=== PATIENT | female | born 1955 | race Caucasian/White ===

== ENCOUNTER 2021-05-01 13:55 | Emergency (ER) | payer BC ==
[~2021-05-01] VITALS: Ht 167 cm; Wt 65.7 kg
--- OUTSIDE RECORDS SUMMARY | 2021-05-01 14:02 | XMS REPORT | Clinical Summary ---
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 Phone PCP Unavailable Allergies No known active allergies Medications End Date Status Medication Sig Dispensed Refills Start Date Active simvastatin (ZOCOR) 20 MG take 1 tablet 0 12/01 tablet (20MG) by 3 oral route every day in the evening Active niacin 500 MG tablet take 1 tablet 0 (500MG) by 3 ORAL route 2 times every day Active calcium carbonate (OYSTER One orally 0 0 CALCIUM) 500 MG TABS daily 3 tablet Active .reconcile (MEDICATION No Sig 1 0 LIST IMPORTED) 3 Active Problems Not on file Social History Date Tobacco Use Types Packs/Day Years Used Never Smoker Sex Assigned at Date Recorded Not on file Last Filed Vital Signs Reading Time Taken Comments Vital Sign 110/78 08/28/2011 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 Blood Pressure - - Pulse - - Temperature - - Respiratory Rate - - Oxygen Saturation - - Inhaled Oxygen Concentration 80.3 kg (177 lb) 08/28/2011 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 Weight 167.6 cm (5' 6") 08/28/2011 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 Height 28.57 08/28/2011 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 Body Mass Index Plan of Treatment Health Maintenance Due Date Last Done Comments COVID-19 Vaccine (1) 1969 Hepatitis C Screening 10/07/1975 DTaP,Tdap,and Td Vaccines 1976 (1 - Tdap) MMR Vaccines-Adult 1976 Cervical Cancer Screening 1978 Breast Cancer 10/07/2007 Screening-Mammogram Zoster Vaccine (1 of 2) 10/07/2007 Colon Cancer Screening 07/27/2018 07/27/2008 Influenza Vaccine (#1) 2021 Pneumo-Vaccine: 65+Yrs (1 2022 of 1 - PPSV23) HIB Vaccines Aged Out No longer eligible based on patient's age to complete this topic IPV Vaccines Aged Out No longer eligible based on patient's age to complete this topic Meningococcal Vaccine Aged Out No longer eligib le based on patient's age to complete this topic Pneumo-Vaccine: Peds (0-5 Aged Out No longer el igible based on patient's age to Yrs) & At-Risk Patients complete this topic (6-64 Yrs) Rotavirus Vaccines Aged Out No longer eligible based on patient's age to complete this topic Results Not on filefrom Last 3 Months
--- OUTSIDE RECORDS SUMMARY | 2021-05-01 14:02 | XMS REPORT | Clinical Summary ---
Author Author [facility] Organization [facility] Address Unknown Phone Unavailable Care Team Providers Care Public Administration Professor Name Role Phone Renata Traylor DO PCP Juventino Riley MD Unavailable Source Comments Some departments are not documenting in the electronic medical record. If you d o not see the information that you expected, contact Release of Information in [facility] [employer] Information Management department at [phone] for further assistan ce in locating additional records.[facility] Allergies No Known Active Allergies Medications End Date Status Medication Sig Dispensed Refills Start Date Active medical supply, Use as 0 miscellaneous directed. (COMPRESSION STOCKINGS 20-30 mm hg MISC) pressure Active Problems Problem Noted Date Postoperative visit 10/02/2018 Varicose veins of right lower extremity with pain Varicose veins of left lower extremity with pain 06/2019 Spider veins 07/13/2018 Surgical History Surgery Date Site/Laterality Comments SECTION 01/18/1985 SECTION 07/15/1987 VARICOSE VEIN SURGERY 07/02/1977 - Right 07/01/1978 HX ENDOVENOUS ABLATION OF 08/15/2018 Right righ t small saphenous endovenous ablation-Dr. MILIAN SMALL SAPHENOUS VEIN Osvaldo HX ENDOVENOUS ABLATION OF 08/16/2018 Left left small saphenous endovenous ablation-Dr. MILIAN SMALL SAPHENOUS VEIN Osvaldo HX MICROPHLEBECTOMY 05/15/2019 Right right leg microphlebectomy Medical History Medical History Date Comments Hyperlipidemia Varicose veins of both lower extremities Cancer (HCC) Family History Medical History Relation Name Comments Circulatory problem Father Varicose Veins Hypertension Father Heart Disease Maternal Grandfather Stroke Maternal Grandmother Cancer Mother None Reported Paternal Grandfather Circulatory problem Paternal Varicose Veins Grandmother Hypertension Paternal Grandmother Relation Name Status Comments Father Maternal Grandfather Maternal Grandmother Mother Alive Paternal Grandfather Paternal Grandmother Social History Date Tobacco Use Types Packs/Day Years Used Quit: 07/09/1988 Former Smoker Smokeless Tobacco: Never Used Comments Alcohol Use Standard Drinks/Week monthly or less Yes 0 (1 standard drink = 0.6 o z pure alcohol) Alcohol Habits Answer Date Recorded How often do you have a drink containing alcohol? No t asked How many drinks containing alcohol do you have on No t asked a typical day when you are drinking? How often do you have six or more drinks on one Not asked occasion? 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 Blood Pressure 71 07/22/2019 2:13 PM SHEET COMBINING OPERATOR Pulse 36.6 C (97.8 F) 07/22/2019 2:07 PM SHEET COMBINING OPERATOR Temperature - - Respiratory Rate - - Oxygen Saturation - - Inhaled Oxygen Concentration 62.1 kg (137 lb) 07/22/2019 2:07 PM SHEET COMBINING OPERATOR Weight 167.6 cm (5' 6") 07/22/2019 2:07 PM SHEET COMBINING OPERATOR Height 22.11 07/22/2019 2:07 PM SHEET COMBINING OPERATOR Body Mass Index Plan of Treatment Health Maintenance Due Date Last Done Comments HIV SCREENING 1972 DTAP/TDAP VACCINES (1 - 10/07/1975 Tdap) HEPATITIS C SCREENING 10/07/1975 PHYSICAL (COMPREHENSIVE) 10/07/1975 EXAM CERVICAL CANCER SCREENING 1978 BREAST CANCER SCREENING 1997 COLORECTAL CANCER 10/07/2007 SCREENING SHINGLES RECOMBINANT 10/07/2007 VACCINE (1 of 2) INFLUENZA VACCINE 01/30/2021 Results Not on filefrom Last 3 Months Insurance Type Payer Benefit Subscriber ID Effective Phone Address Plan / Dates Group PPO BCBS G[employer] BCBS [employer] [id number] 2013- FED EMP Present PROGRAM Advance Directives Patient Complex Manager Explanation Type Date Recorded Advance Directive/DPOA
[2021-05-01] MEDS ORDERED: fentaNYL INJ 100 MCG/2 ML AMP IVP STA (14:32)
[2021-05-01] MEDS ORDERED: NS IV 1000 ML 1,000 ML IV STA (14:32)
[2021-05-01] MEDS ORDERED: KETOROLAC 30 MG/ML VIAL IVP STA (14:32)
[2021-05-01 14:43] LABS: ALBUMIN 4.4 GM/DL (3.2-4.5)
--- NOTE | 2021-05-01 14:43 | ED Abdominal Pain ---
General Chief Complaint: Chest Pain Stated Complaint: CHEST AND BACK PAIN/VOMITING Nursing Triage Note: PT ARRIVES TO ER FROM [facility] WITH C/O LOWER STERNAL PAIN/ CHEST PAIN AND VOMITTING LAST NIGHT. PT HAS NOT BEEN AROUND ANYONE SICK THAT SHE IS AWARE OF BUT DID JUST MOVE TO [place] FROM [place] THIS WEEK Source of Information: Patient Exam Limitations: No Limitations History of Present Illness Date Seen by Provider: May 01, 2021 Time Seen by Provider: 14:23 Initial Comments Here with complaint of epigastric abdominal pain that radiates to her back. Onset yesterday after eating ribs and onion rings. She had multiple episodes of vomiting which did help. She is feeling still a little sick today with mild pain. She has been able to drink water but has not tried to eat anything. Denies fever chills. She is passing a lot of gas and burping. Does feel rumbling in her stomach. She has had 1 previous incident of this but it went away. Her sister recently had her gallbladder out and patient was a little bit worried about that. Denies active chest pain, breathing problems, fever, chills, upper respiratory infections, blood in her urine or stool or other concerns. Timing/Duration: 12 Hours Severity/Quality: Moderate Location: Epigastric Radiation: Back Activities at Onset: Other (Eating) Modifying Factors: Worsens With Eating; Improves With Vomiting Associated Symptoms: Back Pain, Chest Pain (Burning aching pain that starts epigastric and moves up to the chest a little bit but mostly to the back); No Fever/Chills; Heartburn, Nausea/Vomiting; No Shortness of Air, No Weakness Allergies and Home Medications Allergies Coded Allergies: No Known Drug Allergies (Unverified , 05/01/21) Patient Home Medication List Home Medication List Reviewed: Yes Review of Systems Review of Systems Constitutional: see HPI; No fever, No weakness EENTM: See HPI Respiratory: See HPI Cardiovascular: See HPI Gastrointestinal: Abdominal Pain, Nausea, Vomiting Genitourinary: Denies Hematuria, Denies Pain Musculoskeletal: see HPI Skin: no symptoms reported Psychiatric/Neurological: No Symptoms Reported All Other Systems Reviewed Negative Unless Noted: Yes Past Nhsnxee-Chqkex-Emovnv Hx Patient Social History Tobacco Use?: No Use of E-Cig and/or Vaping dev: No Substance use?: No Alcohol Use?: No Pt feels they are or have been: No Immunizations Up To Date Influenza Vaccine Up-to-Date: No; Not Current First/Initial COVID19 Vaccinat: OCTOBER 2020 Second COVID19 Vaccination Sarmad: NOVEMBER 2020 COVID19 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 Past Medical History Surgeries: Yes Breast, Section Respiratory: No Cardiac: No Neurological: No : No Genitourinary: No Gastrointestinal: No Musculoskeletal: No Endocrine: No HEENT: No Cancer: Yes Breast What Type of Treatment Did You: Surgical Intervention Family Medical History Reviewed and Corrections made No Pertinent Family Hx Physical Exam Vital Signs Vital Signs - First Documented 05/01/21 14:00 Temp 37.3 Pulse 90 Resp 18 B/P (MAP) 134/96 (109) Pulse Ox 98 O2 Delivery Room Air Capillary Refill : Less Than 3 Seconds Height/Weight/BMI Height: '" Weight: lbs. oz. kg; 23.00 BMI Method: General Appearance: WD/WN, no apparent distress HEENT: PERRL/EOMI Neck: full range of motion, supple Respiratory: lungs clear, normal breath sounds Cardiovascular: regular rate, rhythm, no murmur Gastrointestinal: soft; No distended, No guarding; tenderness (Mild in the epigastric/right upper quadrant) Extremities: non-tender, normal inspection, no pedal edema Back: normal inspection, no CVA tenderness, no vertebral tenderness Neurologic/Psychiatric: alert, normal mood/affect, oriented x 3 Skin: normal color, warm/dry Progress/Results/Core Measures Results/Orders Lab Results Laboratory Tests Test 05/01/21 14:08 Range/Units White Blood Count 9.4 4.3-11.0 10^3/uL Red Blood Count 4.36 3.80-5.11 10^6/uL Hemoglobin 13.3 11.5-16.0 g/dL Hematocrit 40 35-52 % Mean Corpuscular Volume 93 80-99 fL Mean Corpuscular Hemoglobin 31 25-34 pg Mean Corpuscular Hemoglobin Concent 33 32-36 g/dL Red Cell Distribution Width 12.7 10.0-14.5 % Platelet Count 320 130-400 10^3/uL Mean Platelet Volume 9.6 9.0-12.2 fL Immature Granulocyte % (Auto) 0 % Neutrophils (%) (Auto) 77 H 42-75 % Lymphocytes (%) (Auto) 12 12-44 % Monocytes (%) (Auto) 10 0-12 % Eosinophils (%) (Auto) 0 0-10 % Basophils (%) (Auto) 0 0-10 % Neutrophils # (Auto) 7.2 1.8-7.8 X 10^3 Lymphocytes # (Auto) 1.2 1.0-4.0 X 10^3 Monocytes # (Auto) 1.0 0.0-1.0 X 10^3 Eosinophils # (Auto) 0.0 0.0-0.3 10^3/uL Basophils # (Auto) 0.0 0.0-0.1 10^3/uL Immature Granulocyte # (Auto) 0.0 0.0-0.1 10^3/uL Sodium Level 137 135-145 MMOL/L Potassium Level 3.7 3.6-5.0 MMOL/L Chloride Level 102 98-107 MMOL/L Carbon Dioxide Level 22 21-32 MMOL/L Anion Gap 13 5-14 MMOL/L Blood Urea Nitrogen 12 7-18 MG/DL Creatinine 0.79 0.60-1.30 MG/DL Estimat Glomerular Filtration Rate 74 BUN/Creatinine Ratio 15 Glucose Level 101 70-105 MG/DL Calcium Level 9.5 8.5-10.1 MG/DL Corrected Calcium 9.2 8.5-10.1 MG/DL Magnesium Level 1.9 1.6-2.4 MG/DL Total Bilirubin 1.1 H 0.1-1.0 MG/DL Aspartate Amino Transf (AST/SGOT) 18 5-34 U/L Alanine Aminotransferase (ALT/SGPT) 14 0-55 U/L Alkaline Phosphatase 79 40-136 U/L Troponin I < 0.028 <0.028 NG/ML C-Reactive Protein High Sensitivity 1.26 H 0.00-0.50 MG/DL Total Protein 7.4 6.4-8.2 GM/DL Albumin 4.4 3.2-4.5 GM/DL Lipase 7 L 8-78 U/L My Orders Orders - JEFF HOUSE MD Cbc With Automated Diff (05/01/21 14:32) Comprehensive Metabolic Panel (05/01/21 14:32) Hs C Reactive Protein (05/01/21 14:32) Lipase (05/01/21 14:32) Magnesium (05/01/21 14:32) Troponin I (05/01/21 14:32) Ondansetron Injection (Zofran Injectio (05/01/21 14:45) Ns Iv 1000 Ml (Sodium Chloride 0.9%) (05/01/21 14:32) Ed Iv/Invasive Line Start (05/01/21 14:32) Fentanyl Inj (Sublimaze Injection) (05/01/21 14:32) Ketorolac Injection (Toradol Injection) (05/01/21 14:32) Ekg Tracing (05/01/21 14:32) Chest 1 View, Ap/Pa Only (05/01/21 14:32) Medications Given in ED Current Medications Medications Dose Ordered Sig/Waqar Route Start Time Stop Time Status Last Admin Dose Admin Ondansetron HCl 4 mg ONCE ONCE IVP 05/01/21 14:45 05/01/21 14:46 DC 05/01/21 14:44 4 MG Vital Signs/I&O 05/01/21 14:00 Temp 37.3 Pulse 90 Resp 18 B/P (MAP) 134/96 (109) Pulse Ox 98 O2 Delivery Room Air Blood Pressure Mean: 109 Progress Progress Note : Progress Note Seen and evaluated. IV, labs, EKG and chest x-ray ordered. Normal saline 1 L bolus, Toradol 30 mg IV, fentanyl 25 mcg IV ordered. Seems to be more abdominal pain related room I do have concerns about gallbladder. We will reevaluate after medications and labs. Ultrasound not available today. If imaging is needed, we will need to do CT scan but will see what the labs show. Monitor patient. 1531: Overall doing much better and pain-free currently. Labs reviewed. No indication for CT scan currently. Patient would benefit from ultrasound. I did discuss the case with Dr. Rice and he will see her tomorrow around 2:00. Patient is to call the office in the morning for appointment. Patient was very appreciative of that and will call the office in the morning. I will send a copy of the chart to Dr. Rice. Discharged home with return precautions. Patient verbalized understanding of instructions and agreement with plan. Initial ECG Impression Date: May 01, 2021 Initial ECG Impression Time: 14:03 Initial ECG Rate: 83 Initial ECG Rhythm: Normal Sinus Initial ECG Comparisson: No Previous ECG Available Comment Sinus rhythm with normal axis. No evidence of ST elevation [place]. Consideration for left atrial abnormality. No previous available for comparison. Interpreted by me. Departure Impression Primary Impression: Epigastric abdominal pain Disposition: 01 HOME, SELF-CARE Condition: Improved Departure-Patient Inst. Decision time for Depature: 15:32 Referrals: KRISTYN RICE,LOCAL PHYSICIAN (PCP) Primary Care Physician Patient Instructions: Abdominal Pain, Adult ED, Gallstones (DC), POSS GALLSTONE-W/BILIARY COLIC Add. Discharge Instructions: All discharge instructions reviewed with patient and/or family. Voiced understanding. Stick to clear or light diet for the next 24 to 48 hours and then in advance as per instructions with Dr. Rcie. Avoid fatty or spicy foods completely right now. You may take Tylenol/acetaminophen 1000 mg every 6-8 hours as needed for pain. If that is not working then you may take ibuprofen 400 mg every 8 hours as needed for pain. If you are having pain after Tylenol and ibuprofen, return to the emergency department for further evaluation. Return for chest pain, breathing problems, weakness, fever, vomiting or other concerns as needed. Call Dr. Rice's office in the morning for appointment at around 2:00 pm when he will be in office seeing another patient. Let them know the case was discussed with him and he would like to see you. Copy Copies To 1: KRISTYN RICE TIMOTHY D MD May 01, 2021 14:43
[2021-05-01 14:44] LABS: CHLORIDE 102 MMOL/L (98-107); POTASSIUM 3.7 MMOL/L (3.6-5.0); SODIUM 137 MMOL/L (135-145)
[2021-05-01 14:45] LABS: CALCIUM 9.5 MG/DL (8.5-10.1)
[2021-05-01] MEDS ORDERED: ONDANSETRON 4 MG/2 ML (SDV) Z0FRAN IVP ONE (14:45)
[2021-05-01 14:46] LABS: GLUCOSE 101 MG/DL (70-105); TOTAL PROTEIN 7.4 GM/DL (6.4-8.2)
[2021-05-01 14:47] LABS: BASOPHILS % (AUTO) 0 % (0-10); CARBON DIOXIDE 22 MMOL/L (21-32); EOSINOPHILS % (AUTO) 0 % (0-10); HEMATOCRIT 40 % (35-52); HEMOGLOBIN 13.3 g/dL (11.5-16.0); LYMPHOCYTES # (AUTO) 1.2 X 10^3 (1.0-4.0); LYMPHOCYTES % (AUTO) 12 % (12-44); MEAN CORPUSCULAR HEMOGLOBIN 31 pg (25-34); MEAN CORPUSCULAR HGB CONC 33 g/dL (32-36); MEAN CORPUSCULAR VOLUME 93 fL (80-99); MEAN PLATELET VOLUME 9.6 fL (9.0-12.2); MONOCYTES % (AUTO) 10 % (0-12); NEUTROPHILS # (AUTO) 7.2 X 10^3 (1.8-7.8); NEUTROPHILS % (AUTO) 77 % (42-75); PLATELET COUNT 320 10^3/uL (130-400); WHITE BLOOD COUNT 9.4 10^3/uL (4.3-11.0)
[2021-05-01 14:48] LABS: BILIRUBIN,TOTAL 1.1 MG/DL (0.1-1.0)
[2021-05-01 14:49] LABS: ALKALINE PHOSPHATASE 79 U/L (40-136)
[2021-05-01 14:50] LABS: CREATININE SERUM 0.79 MG/DL (0.60-1.30); GFR ESTIMATED 74
[2021-05-01 14:51] LABS: BUN/CREATININE RATIO 15
[2021-05-01 14:53] LABS: ALANINE AMINOTRANSFERASE 14 U/L (0-55); MAGNESIUM 1.9 MG/DL (1.6-2.4)
[2021-05-01 14:54] LABS: LIPASE 7 U/L (8-78)
--- NOTE | 2021-05-01 15:12 | Diagnostic Imaging Report ---
Clinical indications: Patient with lower sternal pain/chest pain. Patient was vomiting last night. Patient has history of breast cancer surgery in the right breast. Exam: Portable chest x-ray upright view. Comparisons: None. Findings: Lungs/pleura: Lungs are clear. There is no pneumothorax. There is no pleural effusion. Mediastinum: Unremarkable. Pulmonary vasculature: Unremarkable. Heart: Unremarkable. Bones/extrathoracic soft tissue: There are degenerative spurs involving the thoracic spine. There are surgical clips overlying the right lower chest region. Impression: There is no radiographic evidence of acute cardiopulmonary process. Dictated by: Dictated on workstation # [id number]
[2021-05-01 15:43] VITALS: BP 121/90
== END 2021-05-01 15:45 | disposition home or self-care (01) ==
LOC: ER 13:59
DX: R10.13 Epigastric pain (principal)
CPT/HCPCS: 36415; 71045; 80053; 83690; 83735; 84484; 85025; 86141; 93005

== ENCOUNTER → 2021-05-06 | Outpatient (CLI) | payer BC ==
--- NOTE | 2021-05-06 10:44 | Diagnostic Imaging Report ---
PROCEDURE: US Gallbladder. TECHNIQUE: Multiple real-time grayscale images were obtained over the right upper quadrant in various projections. INDICATION: Abdominal pain and vomiting episodes. EXAMINATION: Ultrasound gallbladder from 05/06/2021 FINDINGS: The liver is unremarkable with no focal lesions or intrahepatic biliary dilatation. The common duct is normal in size measuring 0.5 cm. Gallbladder wall is at the upper limits of normal measuring 3 mm. Sludge is seen within the gallbladder. There is no pericholecystic fluid. Visualized aspects of the pancreas unremarkable, however, much of the pancreas is not seen due to overlying bowel gas. Visualized aorta and IVC unremarkable. Right kidney 10.2 cm in length and unremarkable in appearance. There is no hydronephrosis. There is no ascites. IMPRESSION: 1. Sludge within the gallbladder with the gallbladder wall at the upper limits of normal in thickness. No other evidence for acute cholecystitis. Dictated by: Dictated on workstation # [id number]
== END ==
LOC: RAD 08:30
PROVIDERS: ATTEND Surgery
DX: R10.13 Epigastric pain (principal); R11.10 Vomiting, unspecified
CPT/HCPCS: 76705

== ENCOUNTER 2021-05-16 05:34 | Outpatient (CLI) | payer BC ==
[~2021-05-16] VITALS: Ht 167 cm; Wt 65.9 kg
[2021-05-18] MEDS ORDERED: ACHD5005 PO (09:53)
== END 2021-05-16 09:59 | disposition home or self-care (01) ==
LOC: PREOP 05:34
PROVIDERS: ATTEND Surgery
DX: Z01.818 Encounter for other preprocedural examination (principal)

== ENCOUNTER 2021-05-18 06:46 | Day surgery (SDC) | payer BC ==
[2021-05-18] VITALS (12 sets, daily range): BP systolic 121–157; BP diastolic 67–90
[~2021-05-18] VITALS: Ht 167 cm; Wt 65.9 kg
[2021-05-18] MEDS ORDERED: LIDOCAINE/EPI 1%-1:100,000 (XYLOCAINE) 20ML ONE (06:56)
[2021-05-18] MEDS ORDERED: LIDOCAINE PF 2% 5 ML (XYLOCAINE) VIAL ONE (07:22)
[2021-05-18] MEDS ORDERED: ROCURONIUM 10 MG/ML 5 ML SYRINGE IV ONE (07:22)
[2021-05-18] MEDS ORDERED: fentaNYL INJ 100 MCG/2 ML AMP ONE (07:22)
[2021-05-18] MEDS ORDERED: MIDAZOLAM 2 MG/2 ML (VERSED) VIAL ONE (07:22)
[2021-05-18] MEDS ORDERED: proPOfol 200 MG/20 ML (DIPRIVAN) VIAL IV ONE (07:22)
[2021-05-18] MEDS ORDERED: ONDANSETRON 4 MG/2 ML (SDV) Z0FRAN ONE (07:22)
[2021-05-18] MEDS ORDERED: ceFAZolin INJECTION 1,000 MG VIAL IV ONE (07:30)
--- NOTE | 2021-05-18 08:10 | Progress Note-Pre Operative ---
Pre-Operative Progress Note H&P Reviewed The H&P was reviewed, patient examined and no changes noted. Time Seen by Provider: 08:06 Date H&P Reviewed: May 18, 2021 Time H&P Reviewed: 08:06 Pre-Operative Diagnosis: Cholelithiasis/Cholecystitis KRISTYN BONILLA DO May 18, 2021 08:10
[2021-05-18] MEDS: LACTATED RINGERS 1,000 ML IV PRN ×2 (08:24→08:40)
[2021-05-18] MEDS ORDERED: NEOSTIGMINE 3 MG/3 ML VIAL ONE (09:35)
[2021-05-18] MEDS ORDERED: GLYCOPYRROLATE 0.2 MG/ML (ROBINUL) 2 ML VIAL ONE (09:35)
[2021-05-18] MEDS ORDERED: SEVOFLURANE (ULTANE) 15 ML INHAL SOLN ONE (09:44)
--- NOTE | 2021-05-18 09:48 | Progress Note-Post Operative ---
Post-Operative Progess Note Surgeon (s)/Merchandise Shopper (s) Surgeon KRISTYN BONILLA DO Merchandise Shopper: Carmelo Pre-Operative Diagnosis Cholelithiasis/Cholecystitis Post-Operative Diagnosis Same plus Intraperitoneal masses Hydrops of GB with purulent drainage Procedure & Operative Findings Date of Procedure 05/18/21 Procedure Performed/Findings 1) Lap medhat with IOC 2) Exc biopsy of intraperitoneal masses x 3 PROCEDURE: Laparoscopic cholecystectomy with intraoperative cholangiogram. COMPLICATIONS: None. PROCEDURE: The patient was taken to the operating suite and was prepped and draped in sterile fashion. A surgical pause was performed. Just superior to the umbilicus, a 12 mm incision was made. Dissection was taken down to the fascia, which was then scored and grasped with a Jim and the abdomen was then entered. A 0 Vicryl suture was placed in a [id number] fashion and a Calderon trocar was placed and secured. Pneumoperitoneum was achieved. A 5mm trochar place in the subxyphoid and 2 in the right upper quadrant. Upon entering noted whitish masses and some plaques on the peritoneum. Looking around good see them on the bowel as well as the gallbladder. The gallbladder was then grasped and elevated. Started removing adhesions to the liver and then omentum off the base of the gallbladder, it was very firm and took off one nodule here; sent for frozen section. While freeing this off a small hole was torn in the cystic duct and purulent fluid came flowing out. This was suctioned up and then able to get around the cystic duct. Clip was placed on the distal portion of the cystic duct and then an arrow catheter was inserted into the duct, clipped in place. The cholangiogram was then performed. The cystic duct appeared very tortuous and small contrast made its way into the duodenum. Had to place the pt trendelenberg and able to get some dye up the common hepatic, but not all the way. There also appeared to be narrowing near the ampulla and maybe some dilation of the pancreatic duct. Clip on cystic duct was pulled off and then catheter removed. Clips were placed on proximal portion of the cystic duct and then the duct was then transected. Clips were placed along the proximal and distal portion of the cystic artery which was then transected. Hook cautery was used to dissect the gallbladder from the gallbladder fossa achieving hemostasis. The gallbladder was placed in an Endobag and removed through the 12 mm trocar site. The abdomen was then reinspected. Copious amounts of irrigation were used to irrigate the abdomen and there were no signs of active bleeding. Elected to take 2-3 more of the peritoneal masses off; with sharp dissection by scissors. Hemostasis had been achieved. The 12 mm fascial defect was then closed with 0 Vicryl suture that had been placed in a [id number] fashion. The abdomen was then desufflated, the trocars were removed. The abdomen was then washed and dried. The skin was then closed using 4-0 Monocryl in a subcuticular fashion. The abdomen was washed and dried and Skin Affix was place over incisions. Patient tolerated the procedure well without any complications and was taken to the recovery room in stable condition. Dr. Rhodes assisted on this case helping to make incisions, close incisions, identify anatomy, hold anatomy out of the way and remove the intraperitoneal masses. Anesthesia Type GET Estimated Blood Loss Estimated blood loss (mL): less than 5ml Specimens/Packing Specimens Removed GB and contents Intraperitoneal masses KRISTYN BONILLA DO May 18, 2021 09:48
--- NOTE | 2021-05-18 09:50 | Discharge Inst-Surgical ---
Discharge Inst-Surgical Depart Medication/Instructions New, Converted or Re-Newed RX: Transmitted to Pharmacy Patient Instructions Follow up Appt: Make appointment for 1 week. [phone] Instructions: No lifting greater than 20 pounds. No strenuous activity. May shower in 24 hours, no tub bath or soaking. Use incentive spirometer at home as directed. No Smoking Skin/Wound Care: May remove bandages in am. You need to leave the Dermabond on incision it will fall off on it's own. Symptoms to Report: Appetite Changes, Extremity Discoloration, Numbness/Tingling, Swelling Increased, Bleeding Excessive, Eyesight Changes, Pain Increased, Urine Color Change, Constipation(Persistent), Fever over 101 degree F, Pain/Pressure in chest, Urinating Difficulty, Cough Up/Vomit Blood, Heart Beat Irreg/Pounding, Pain/Pressure in jaw, Cramps in feet or legs, Lightheadedness, Pain/Pressure in shoulder, Diarrhea(Persistent), Memory Changes Suddenly, Questions/Concerns, Weight gain consecutive days, Dizziness/Fainting, Nausea/Vomiting, Shortness of Breath, Weight gain over 2 pounds If questions or concerns contact your physician Or seek help at emergency department. Activity Activity as Tolerated: Yes Activity Instructions: Avoid Stress to Incision Driving Instructions: No Driving/Refer to Diet Discharge Diet: Avoid Fatty Foods, Low Fat/Low Cholesterol Diet After 24 Hours: Clear Liquid if Nauseous If Any Problems/Questions/Issu: Contact Your Physician, Go to Emergency Room Skin/Wound Care Infection Signs and Symptoms: Increased Redness, Foul Odor of Wound, Increased Drainage, Skin Itchy or Has a Rash, Increased Swelling, Temperature Above 101 F Wound Care Comment: heating pad to shoulder or neck tonight for pain Bathing Instructions: Shower Stitches/Lampe/Dermabond Dis: Dermabond Ice Pack: Ice On and Off Site KRISTYN BONILLA DO May 18, 2021 09:50
[2021-05-18] MEDS ORDERED: ACHD5005 PO (09:53)
[2021-05-18] MEDS ORDERED: MEPERIDINE (DEMEROL) INJ 50 MG/ML IVP ONE (10:00)
[2021-05-18] MEDS ORDERED: PROMETHAZINE INJ 25 MG/ML (PHENERGAN) AMP IVP ONE (10:00)
[2021-05-18] MEDS ORDERED: fentaNYL INJ 100 MCG/2 ML AMP IVP ONE (10:00)
[2021-05-18] MEDS ORDERED: ONDANSETRON 4 MG/2 ML (SDV) Z0FRAN IVP PRN (10:00)
--- NOTE | 2021-05-18 10:18 | Anesthesia-General Post-Op ---
General Patient Condition Mental Status/LOC: Same as Preop Cardiovascular: Satisfactory Nausea/Vomiting: Absent Respiratory: Satisfactory Pain: Controlled Complications: Absent Post Op Complications Complications None Follow Up Care/Instructions Patient Instructions None needed. Anesthesia/Patient Condition Patient Condition Patient is doing well, no complaints, stable vital signs, no apparent adverse anesthesia problems. No complications reported per nursing. JESUS GUERIN CRNA May 18, 2021 10:18
--- NOTE | 2021-05-18 10:55 | Diagnostic Imaging Report ---
INDICATION: Cholelithiasis. Cholecystectomy. FINDINGS: 63 seconds of fluoroscopy was used for the cholangiogram in surgery. 404 images were obtained which show no filling defect in the common bile duct. The bile duct is not abnormally dilated. There is reflux into a portion of the pancreatic duct. There is some narrowing at the level of the ampulla but could be due to spasm versus stricture, either benign or malignant. IMPRESSION: There is narrowing distally. No gallstones are seen. Dictated by: Dictated on workstation # [id number]
[2021-05-18] MEDS ORDERED: HYDROcodone/APAP 5 MG/325 MG (LORTAB) TAB PO ONE (11:30)
[2021-05-18] MEDS ORDERED: HYDROcodone/APAP 5 MG/325 MG (LORTAB) TAB ONE (11:30)
== END 2021-05-18 13:20 | disposition home or self-care (01) ==
LOC: SDC 06:46
PROVIDERS: ATTEND Surgery
DX: C78.89 Secondary malignant neoplasm of other digestive organs (principal); C78.6 Secondary malignant neoplasm of retroperitoneum and peritoneum; K82.1 Hydrops of gallbladder; K81.1 Chronic cholecystitis; K21.9 Gastro-esophageal reflux disease without esophagitis; Z87.891 Personal history of nicotine dependence; Z85.3 Personal history of malignant neoplasm of breast
CPT/HCPCS: 76000; 87081; 88304; 88305; 88341; 88342

== ENCOUNTER 2021-06-01 05:27 | Outpatient (RCR) | payer BC ==
[~2021-06-01] VITALS: Ht 167.7 cm; Wt 64.4 kg
[~2021-06-01 05:27] MED LIST: ACHD5005 PO
== END 2021-06-01 08:40 | disposition home or self-care (01) ==
LOC: PREOP 05:27
PROVIDERS: ATTEND Surgery
DX: Z01.812 Encounter for preprocedural laboratory examination (principal); Z20.822 Contact with and (suspected) exposure to COVID-19
CPT/HCPCS: 87635

== ENCOUNTER 2021-06-03 11:45 | Day surgery (SDC) | payer BC ==
[~2021-06-03] VITALS: Ht 167.7 cm; Wt 64.4 kg
[2021-06-03] MEDS ORDERED: LACTATED RINGERS 1,000 ML IV ONE (11:56)
[2021-06-03] MEDS ORDERED: LACTATED RINGERS 1,000 ML IV STA (12:03)
[2021-06-03] MEDS ORDERED: HURRICAINE EXT TUBE (BENZOCAINE) XX PRN (12:15)
[2021-06-03 12:30] VITALS: BP 119/60
[2021-06-03] MEDS ORDERED: proPOfol 200 MG/20 ML (DIPRIVAN) VIAL IV ONE (13:17)
--- NOTE | 2021-06-03 13:20 | Progress Note-Pre Operative ---
Pre-Operative Progress Note H&P Reviewed The H&P was reviewed, patient examined and no changes noted. Time Seen by Provider: 11:18 Date H&P Reviewed: Jun 03, 2021 Time H&P Reviewed: 11:18 Pre-Operative Diagnosis: Possible gastric CA KRISTYN BONILLA DO Jun 03, 2021 13:20
[2021-06-03 14:20] VITALS: BP 119/69
--- NOTE | 2021-06-03 14:28 | Endoscopy Discharge Instruct ---
Endo Procedure/Findings Findings 1.: Gastritis 2.: Hiatal Hernia Discharge Instructions - Activity: You might feel a little sleepy until tomorrow. This is due to the medicine you received to relax you. Until tomorrow, you should: NOT drive a car, operate machinery or power tools. NOT drink any alcoholic beverages. NOT make any important decisions or sign importortant papers. Do not return to work until tomorrow, unless otherwise instructed. Resume previous activities tomorrow. Diet: Start by taking liquids. If you tolerate liquids, advance to solid food. 1.: EGD in 3 years Notify Physician - If you experience excessive bleeding, unusual abdominal pain, fever, or chest pain, contact your doctor immediately. KRISTYN BONILLA DO Jun 03, 2021 14:28
--- NOTE | 2021-06-03 14:28 | Progress Note-Post Operative ---
Post-Operative Progess Note Surgeon (s)/Product Delivery Specialist (s) Surgeon KRISTYN BONILLA DO Product Delivery Specialist: BERNIE LedesmaII Pre-Operative Diagnosis Possible gastric CA Post-Operative Diagnosis Gastritis hiatal hernia no masses Procedure & Operative Findings Date of Procedure 06/03/21 Procedure Performed/Findings EGD with bx PROCEDURE NOTE: After informed consent was obtained, the patient was brought to the endoscopy suite, placed in bed in left lateral decubitus position. She was administered IV sedation by the MAID SUPERVISOR who then monitored vitals the entire time, heart rate, blood pressure and pulse ox and the scope was inserted down the mouth through the esophagus into the stomach. Pushed into the stomach, pushed past the antrum into the duodenum. Duodenum looked good. Pulled back, noted mild gastritis and did a biopsy of antrum. Retroflexed the scope, saw a small hiatal hernia, took a picture of this and then did a biopsy of the body of the stomach. Next pulled the scope into the GE junction, took a picture of the Z-line; it looked good. Finally did a biopsy of the GE junction. Pushed the scope back into the stomach, did see any masses that would indicate a cancer. Suctioned all the air out of the stomach. At this point pulled the scope up the esophagus and out the mouth. The patient tolerated the procedure, and she recovered in endoscopy suite. Anesthesia Type IV sedation by MAID SUPERVISOR Estimated Blood Loss Estimated blood loss (mL): scant Specimens/Packing Specimens Removed antral bx Body of stomach bx GE jxn bx KRISTYN BONILLA DO Jun 03, 2021 14:28
[2021-06-03 14:30] VITALS: BP 120/60
--- NOTE | 2021-06-03 14:37 | Anesthesia-General Post-Op ---
MAC Patient Condition Mental Status/LOC: Same as Preop Cardiovascular: Satisfactory Nausea/Vomiting: Absent Respiratory: Satisfactory Pain: Controlled Complications: Absent Post Op Complications Complications None Follow Up Care/Instructions Patient Instructions None needed. Anesthesiology Discharge Order Discharge Order Patient is doing well, no complaints, stable vital signs, no apparent adverse anesthesia problems. No complications reported per nursing. LUPE ORTEGA CRNA Jun 03, 2021 14:37
[2021-06-03 14:58] VITALS: BP 136/71
== END 2021-06-03 14:58 | disposition home or self-care (01) ==
LOC: ENDO 11:45
PROVIDERS: ATTEND Surgery
DX: K29.50 Unspecified chronic gastritis without bleeding (principal); K44.9 Diaphragmatic hernia without obstruction or gangrene; K21.9 Gastro-esophageal reflux disease without esophagitis; Z87.891 Personal history of nicotine dependence; Z85.3 Personal history of malignant neoplasm of breast; Z80.3 Family history of malignant neoplasm of breast
CPT/HCPCS: 88305; 88341; 88342

== ENCOUNTER 2021-06-27 08:35 | Outpatient (RCR) | payer BC ==
[2021-06-27 10:03] LABS: BASOPHILS % (AUTO) 1 % (0-10); EOSINOPHILS # (AUTO) 0.1 10^3/uL (0.0-0.3); EOSINOPHILS % (AUTO) 2 % (0-10); HEMATOCRIT 44 % (35-52); HEMOGLOBIN 14.2 g/dL (11.5-16.0); LYMPHOCYTES # (AUTO) 1.9 10^3/uL (1.0-4.0); LYMPHOCYTES % (AUTO) 31 % (12-44); MEAN CORPUSCULAR HEMOGLOBIN 30 pg (25-34); MEAN CORPUSCULAR HGB CONC 33 g/dL (32-36); MEAN CORPUSCULAR VOLUME 92 fL (80-99); MEAN PLATELET VOLUME 9.6 fL (9.0-12.2); MONOCYTES # (AUTO) 0.5 10^3/uL (0.0-1.0); MONOCYTES % (AUTO) 8 % (0-12); NEUTROPHILS # (AUTO) 3.7 10^3/uL (1.8-7.8); NEUTROPHILS % (AUTO) 59 % (42-75); PLATELET COUNT 249 10^3/uL (130-400); WHITE BLOOD COUNT 6.3 10^3/uL (4.3-11.0)
[2021-06-27 10:22] LABS: ALANINE AMINOTRANSFERASE 17 U/L (0-55); ALBUMIN 4.6 GM/DL (3.2-4.5); ALKALINE PHOSPHATASE 98 U/L (40-136); BILIRUBIN,TOTAL 0.8 MG/DL (0.1-1.0); BUN/CREATININE RATIO 20; CALCIUM 10.2 MG/DL (8.5-10.1); CARBON DIOXIDE 22 MMOL/L (21-32); CHLORIDE 105 MMOL/L (98-107); CREATININE SERUM 0.91 MG/DL (0.60-1.30); GFR ESTIMATED 62; GLUCOSE 101 MG/DL (70-105); POTASSIUM 4.4 MMOL/L (3.6-5.0); SODIUM 139 MMOL/L (135-145)
== END 2021-07-01 | disposition home or self-care (01) ==
LOC: ONC 08:35
PROVIDERS: ATTEND Internal Medicine Hematology & Oncology
DX: C48.2 Malignant neoplasm of peritoneum, unspecified (principal); Z80.3 Family history of malignant neoplasm of breast; Z90.11 Acquired absence of right breast and nipple; Z90.49 Acquired absence of other specified parts of digestive tract
CPT/HCPCS: 80053; 82378; 84443; 85025; 86300; 86301; 86304; 99214

== ENCOUNTER → 2021-07-12 | Outpatient (CLI) | payer BC ==
--- NOTE | 2021-07-12 14:12 | Diagnostic Imaging Report ---
INDICATION: Carcinoma of the stomach. TECHNIQUE: Serum blood glucose level at the time of injection was 110 mg/dL. Patient was administered 12.8 mCi F-18 FDG intravenously in the left antecubital location, and whole body PET imaging was performed. Noncontrast CT was also performed for attenuation correction and anatomic correlation. COMPARISON: No prior studies are available for comparison. FINDINGS: There is symmetric activity throughout the brain. Soft tissues of the neck are unremarkable. No mediastinal or hilar hypermetabolism is seen. There is no pulmonary parenchymal hypermetabolism. Physiologic activity throughout the GI and tracts of the abdomen and pelvis is noted. There is a large, approximately 9 cm cyst involving the left kidney. No suspicious hypermetabolic foci in the abnormal or pelvis are identified with the exception of a subtle area of slightly increased uptake involving the right lobe of the liver. Hepatic metastatic lesion cannot be entirely excluded. Bilateral lower extremities are unremarkable. IMPRESSION: Unremarkable whole body PET/CT study apart from a questionable slightly hypermetabolic lesion in the right lobe of the liver. Correlation with CT or MRI would be recommended. Dictated by: Dictated on workstation # [id number]
== END ==
LOC: RAD 09:00
PROVIDERS: ATTEND Internal Medicine Hematology & Oncology
DX: C16.9 Malignant neoplasm of stomach, unspecified (principal)